=== PATIENT | female | born 1935 | race Caucasian/White ===

== ENCOUNTER → 2020-11-10 | Outpatient (CLI) | payer MEDICARE | LOC: M WUC 13:07 | PROVIDERS: ATTEND Physician Assistant | DX: M31.6 Other giant cell arteritis (principal) ==

== ENCOUNTER → 2020-11-22 | Outpatient (REF) | payer MEDICARE | LOC: M LAB REF 08:44 | PROVIDERS: ATTEND Surgery | DX: I77.6 Arteritis, unspecified (principal) ==